=== PATIENT | female | born 1970 | race Caucasian/White ===

== ENCOUNTER → 2020-12-03 | Outpatient (CLI) | payer OTHER ==
--- NOTE | 2020-12-03 08:47 | REP ---
INDICATION: PAIN COMPARISON: None. TECHNIQUE: AP, lateral, bilateral oblique views left ankle. FINDINGS: The osseous structures and joint spaces are intact and normal. There is no evidence for acute fracture or dislocation. Surrounding soft tissues are unremarkable. No subcutaneous emphysema or radiodense foreign body. IMPRESSION: Age-appropriate left ankle radiographs. No acute fracture or dislocation. <Electronically signed by Dae Mireles > 12/03/20 [id number]
== END ==
LOC: M SOG 08:20
PROVIDERS: ATTEND Orthopaedic Surgery Sports Medicine
DX: M25.572 Pain in left ankle and joints of left foot (principal)

== ENCOUNTER → 2020-12-14 | Outpatient (CLI) | payer OTHER ==
[~2020-12-14] MED LIST: ADV250INH; FLUO20CA22; ONDA4TAB6; PANT20TA6
--- NOTE | 2020-12-14 19:36 | REP ---
INDICATION: LT ANKLE LESION. COMPARISON: Radiographs 12/03/2020. TECHNIQUE: Multiple sequences are obtained in the axial, coronal and sagittal planes. FINDINGS: The Achilles, anterior tibial, flexor hallucis longus, flexor digitorum longus and peroneus brevis tendons are all intact without significant tenosynovitis. However, there is mild fluid surrounding the peroneus longus and posterior tibial tendons at and below the level of the tibiotalar joint, compatible with mild tenosynovitis. The anterior and posterior talofibular, calcaneofibular and deltoid ligaments appear intact. Plantar tendon appears intact. There is no plantar fasciitis. Sinus tarsi appears unremarkable. No ganglion cyst is seen. There is normal amount of joint fluid. The cartilaginous surfaces are smooth. No osteochondral defect is seen at the tibiotalar joint. There is no bone marrow edema or occult fracture. IMPRESSION: Findings compatible with mild tenosynovitis involving the peroneus longus and posterior tibial tendons at and below the level of the tibiotalar joint. No osteochondral defect. <Electronically signed by Laron Magallon > 12/14/201931
== END ==
LOC: M PLAIMG 14:21
PROVIDERS: ATTEND Orthopaedic Surgery Sports Medicine
DX: M93.272 Osteochondritis dissecans, left ankle and joints of left foot (principal)

== ENCOUNTER → 2024-05-31 | Outpatient (CLI) | payer OTHER ==
[~2024-05-31] MED LIST changes: -ADV250INH; +ADVA1AER9 INH; +FLUO-365 PO; -FLUO20CA22; +ONDA-282 PO; -ONDA4TAB6
== END ==
LOC: M RAD 10:39
PROVIDERS: ATTEND Family Medicine
DX: M47.897 Other spondylosis, lumbosacral region (principal); M50.321 Other cervical disc degeneration at C4-C5 level; M50.322 Other cervical disc degeneration at C5-C6 level

== ENCOUNTER → 2024-06-20 | Outpatient (REF) | payer OTHER ==
[2024-06-20 19:23] LABS: HEMATOCRIT 38.5 % (36.0-47.0); MEAN CORPUSCULAR HEMOGLOBIN 29.9 pg (27.0-33.0); MEAN CORPUSCULAR HGB CONC 31.2 g/dl (32.0-36.5); MEAN CORPUSCULAR VOLUME 95.8 fl (80.0-96.0); PLATELET COUNT, AUTOMATED 361 10^3/uL (150-450); RED BLOOD COUNT 4.02 10^6/uL (4.00-5.40); WHITE BLOOD COUNT 7.6 10^3/uL (4.0-10.0)
[2024-06-20 19:26] LABS: TOTAL IRON BINDING CAPACITY 366 UG/DL (250-425)
[2024-06-20 19:27] LABS: ALBUMIN 3.5 G/DL (3.2-5.2); ALKALINE PHOSPHATASE 81 U/L (35-104); ALT/SGPT 18 U/L (7.0-40); AST/SGOT 25 U/L (<34); BILIRUBIN,TOTAL 0.3 MG/DL (0.3-1.2); BLOOD UREA NITROGEN 11 MG/DL (9-23); CARBON DIOXIDE LEVEL 29 MMOL/L (20-31); CHLORIDE LEVEL 106 MMOL/L (98-107); CHOLESTEROL LEVEL 214 MG/DL (<200); CREATININE FOR GFR 0.88 MG/DL (0.55-1.30); GLOMERULAR FILTRATION RATE > 60.0 (>51); GLUCOSE, FASTING 80 MG/DL (60-100); IRON (FE) 41 UG/DL (50-170); PERCENT SATURATION 11.2 % (13.2-45.0); POTASSIUM SERUM 4.3 MMOL/L (3.5-5.1); SODIUM LEVEL 143 MMOL/L (136-145); TOTAL PROTEIN 7.3 G/DL (5.7-8.2); TRIGLYCERIDES LEVEL 100 MG/DL (<150)
[2024-06-20 19:30] LABS: FERRITIN 6.6 NG/ML (7.3-270.7)
[2024-06-20 19:31] LABS: FOLATE 10.9 NG/ML (>5.4); TOTAL 25(OH) VITAMIN D 36.9 NG/ML (20.0-100.0); VITAMIN B12 LEVEL 595 PG/ML (211-911)
[2024-06-20 20:05] LABS: HEMOGLOBIN A1c 5.5 % (4.0-6.0)
== END ==
LOC: M SFHCCLAY 10:01
PROVIDERS: ATTEND Physician Assistant
DX: F41.9 Anxiety disorder, unspecified (principal); Z80.0 Family history of malignant neoplasm of digestive organs; J45.30 Mild persistent asthma, uncomplicated; Z98.84 Bariatric surgery status; R73.03 Prediabetes; E55.9 Vitamin D deficiency, unspecified

== ENCOUNTER → 2025-03-03 | Outpatient (REF) | payer OTHER ==
[2025-03-03 15:12] LABS: PLATELET COUNT, AUTOMATED 328 10^3/uL (150-450)
[2025-03-03 15:15] LABS: IRON (FE) 220.0 UG/DL (50-170)
[2025-03-03 15:17] LABS: PERCENT SATURATION 60.1 % (13.2-45.0)
== END ==
LOC: M SFHCCLAY 08:16
PROVIDERS: ATTEND Physician Assistant
DX: E61.1 Iron deficiency (principal)

== ENCOUNTER → 2025-04-09 | Outpatient (REF) | payer OTHER ==
[2025-04-09 12:11] LABS: PLATELET COUNT, AUTOMATED 373 10^3/uL (150-450)
[2025-04-09 12:17] LABS: IRON (FE) 27.0 UG/DL (50-170); PERCENT SATURATION 7.7 % (13.2-45.0)
[2025-04-09 12:20] LABS: VITAMIN B12 LEVEL 293.0 PG/ML (211-911)
== END ==
LOC: M SFHCCLAY 08:49
PROVIDERS: ATTEND Physician Assistant
DX: D64.9 Anemia, unspecified (principal)